=== PATIENT | female | born 1950 | race Caucasian/White ===

== ENCOUNTER 2018-11-04 07:14 | Inpatient (IN) ==
--- NOTE | 2018-10-10 12:22 | PAT Medication Instructions ---
Medication Instructions Date of Service October 10, 2018 Home Medications calcium carbonate [Calcium 500] 500 mg PO QAM cholecalciferol (vitamin D3) 1,000 unit PO QAM lorazepam 0.5 mg PO BID NEEDED DO NOT take the morning of surgery calcium carbonate [Calcium 500] 500 mg PO QAM cholecalciferol (vitamin D3) 1,000 unit PO QAM Take morning of surgery With a small sip of water, OTHERWISE NOTHING TO EAT OR DRINK AFTER MIDNIGHT: lorazepam 0.5 mg PO BID NEEDED Take evening before surgery lorazepam 0.5 mg PO BID NEEDED Other Notes If you have any questions please call us at [phone] or [phone] or [phone] or [phone]
--- NOTE | 2018-10-10 12:37 | History & Physical Report ---
Date of Service October 10, 2018 Date of Surgery: 11-04-18 Assessment & Plan (1) Bilateral primary osteoarthritis of knee: Risks and benefits of procedure discussed in detail today, patient would like to proceed with Bilateral TKA @ [facility] as scheduled. will obtain medical clearance prior to surgery as well as obtain PATs at [facility]. Will place on Xarelto x 1 month post op, f/u 2 weeks post op for routine post-operative care and xray, sooner if having any problems. will make arrangements for short rehab stay after her surgery. Patients PCP is Dr Tee Hernandez in [place]. History of Present Illness Chief Complaint: bilateral knee pain Primary Care Provider: Tee Hernandez Ms Kim is a 68 year old female who complains of bilateral knee pain, is here today for pre-op visit for bilateral TKA for 11/04/[address] [facility]. She states that the symptoms have been chronic non-traumatic. The symptoms occur intermittently. The problem is unchanged. Currently the patient states that the symptoms are moderate-severe. The pain is described as aching and occasionally sharp. The symptoms occur intermittently. She rates her current pain as 8/10, least is 4/10. The symptoms are aggravated by ascending stairs, daily activities, descending stairs and walking. Emily states that the symptoms are relieved by no specific activity. In addition to knee pain equally on both sides the patient is also experiencing joint pain. she has had previous cortisone injections as well has home exercise program. she has performed PT x 1 as well as using a brace pre-op. Allergies Allergy/AdvReac Type Severity Reaction Status Date / Time No Known Allergies Allergy Verified 10/07/18 09:45 Home Medications Home Medications Medication Instructions Recorded Confirmed Type calcium carbonate [Calcium 500] 500 mg PO QAM 10/07/18 10/07/18 History cholecalciferol (vitamin D3) 1,000 unit PO QAM 10/07/18 10/07/18 History [Vitamin D3] lorazepam 0.5 mg PO BID PRN 10/07/18 10/07/18 History Past Med/Surg History Medical History Chronic obstructive pulmonary disease MILD. DOES NOT USE ANY INHALERS Degenerative disc disease LUMBAR, PT DENIES ANY CURRENT COMPLICATIONS Hyperlipidemia ELEVATED, CURRENTLY DIET MODIFICATION AND MONITORED Osteoarthritis Surgical History History of hysterectomy History of open reduction and internal fixation (ORIF) procedure B/L WRIST S/T FALL. PT HAS A PLATE IN HER LEFT WRIST. History of surgery EYE SURGERY FOR TRIPOD FX Social History Current Living Situation: Alone Other Information That Helps Us Care for You: No Feels Safe at Home: Yes Safety Concerns: Feels Safe At This Time Smoking Status: Never smoker Do You Dip or Chew Tobacco: No Second Hand Exposure: No Tobacco Cessation Education Requested by Patient: No Hx Alcohol Use: No Hx Substance Use: No Beliefs That Will Affect Care: None Preferred Language: Nepalese Communication Ability: Effective Commercial Collections Driver Required: No Review of Systems All systems reviewed & are unremarkable except as noted in HPI & below Constitutional: no fever, no chills, no sweats and no body aches Respiratory: no cough and no dyspnea Cardiovascular: no chest pain, no dyspnea and no orthopnea Gastrointestinal: no nausea and no vomiting Integumentary: no rash and no lesions Physical Exam Vital Signs (Past 24 Hours): Ht: 5ft 10 inches Wt: 74.8kg BP: 124/78 Pulse: 72 Resp: 16 Constitutional: WD/WN, vitals as above no acute distress Respiratory: normal respiratory effort, lungs clear to auscultation no respiratory distress, no labored breathing and does not use accessory muscles Cardiovascular: RRR, no murmur, no edema Gastrointestinal (Abdomen): normal bowel sounds, soft, nontender, no hepatosplenomegaly Musculoskeletal: Bilateral knee Physical exam Overall patient has varus alignment bilaterally, there is no atrophy or ecchymosis noted, no erythema or warmth. she does have +1 suprapatellar effusion in both of her knees, she has tenderness to both medial and lateral joint lines to her right knee, more medial sided tenderness to the left knee. negative patellar apprehension, she does have crepitation noted to both knees with active ROM. bilateral knees stable to valgus and varus stress, julissa negative, posterior drawer negative. Range of motion right knee 0/3/110, left knee 0/3/115. her lower extremities are neurovascularly intact, calf soft and non tender, DP pulse +2 bilaterally. Results & Data Diagnostic Findings Bilateral Knee X-rays taken 09/17/18: bilateral knee series confirm advanced degenerative changes bilateral knees, greatest medial compartments and patellofemoral joints, showing joint space narrowing, osteophyte formation and subchondral sclerosis. no acute bony pathology noted. no loose bodies.
--- NOTE | 2018-10-10 15:00 | Anesthesiology Consultation ---
Date of Service October 10, 2018 Assessment & Plan (1) Encounter for pre-operative examination: Chart Review Chart Review: Acceptable Risk for Surgery and Patient seen in Pre Admission Testing Consults Requested medical (Dr. Tee Hernandez (10/13)) Patient was seen by PCP on 10/13/18. Note states that "She is cleared for surgery. Her preoperative electrocardiogram and labs are reviewed." Teaching & Discussion Pre-Anesthesia Teaching/Discussion Notes: Instructed NPO after midnight before surgery, except medications with 15 cc of water. Medication instructions provided according to the PAT guidelines. History Surgery Operation Date: 11/04/18 08:35 Proposed Procedures p Bilateral Total Knee Arthroplasty - Scott Singh DO Height/Weight Height: 5 ft 10 in Weight: 78 kg Allergies Allergy/AdvReac Type Severity Reaction Status Date / Time No Known Allergies Allergy Verified 10/07/18 09:45 Medications Home Medications Medication Instructions Recorded Confirmed Last Taken calcium carbonate [Calcium 500] 500 mg PO QAM 10/07/18 10/07/18 Unknown cholecalciferol (vitamin D3) 1,000 unit PO QAM 10/07/18 10/07/18 Unknown [Vitamin D3] lorazepam 0.5 mg PO BID PRN 10/07/18 10/07/18 Unknown Past Medical History Medical History Chronic obstructive pulmonary disease MILD. DOES NOT USE ANY INHALERS Degenerative disc disease LUMBAR, PT DENIES ANY CURRENT COMPLICATIONS Hyperlipidemia ELEVATED, CURRENTLY DIET MODIFICATION AND MONITORED Osteoarthritis Past Surgical History Surgical History H/O varicose vein stripping right History of hysterectomy History of open reduction and internal fixation (ORIF) procedure B/L WRIST S/T FALL. PT HAS A PLATE IN HER LEFT WRIST. History of phacoemulsification of cataract of both eyes with intraocular lens implantation History of surgery EYE SURGERY FOR TRIPOD FX History of tonsillectomy and adenoidectomy Past Anesthesia History No Hx of Anesthesia Complications and No Family Hx of Anesthesia Complications History of PONV No Motion Sickness Screening History of Motion Sickness: No Social History Smoking Status: Never smoker Do You Dip or Chew Tobacco: No Hx Alcohol Use: No Alcohol Intake Frequency Comment: 0 Hx Substance Use: No substance use type: does not use Exercise / Class Metabolic Activity II 4-5 Yardwork/Stairs/Walk up hill Able to climb FOS. Denies CP or SOB. Review of Systems Patient denies chest pain, shortness of breath, dyspnea on exertion, reflux, cough, wheezing, palpitations. +joint pain (knees, shoulders, elbows) +heart palpitations (rare, with anxiety) Physical Exam Vital Signs BP: 108/73 P: 73 R: 16 T: 98.0 SPO2: 96% on RA ENMT Mouth: + dentures (Full upper plate) Thyromental Distance: < 3.5 Finger Breadths (3) Mallampati Class: II Neck normal visual inspection and trachea midline; neck extension not limited Respiratory normal respiratory effort Auscultation: lungs clear to auscultation bilaterally Cardiovascular Rate/Rhythm: regular rate and regular rhythm Heart Sounds: no murmur Vessels: no carotid bruit Neurologic moves all extremities Psychiatric Orientation: alert and oriented x 3 Testing Electrocardiogram Date: 10/10/18 Findings: + NSR @ (70) Chest X-Ray Date: 10/10/18 FINDINGS: Cardiac mediastinal and hilar silhouettes are within normal limits. Mild hyperinflation. No pneumothorax, pleural effusion or overt pulmonary edema. No lobar airspace consolidation to suggest pneumonia. Ill-defined 2.2 cm opacity about the lateral left lung base seen on the frontal view without definite correlate on the lateral projection. Degenerative changes of the shoulders and spine. IMPRESSION: 1. Mild hyperinflation without acute process. 2. Ill-defined 2.2 cm opacity about the lateral left lung base is indeterminate and may reflect summation artifact versus underlying pulmonary lesion. (Results sent to PCP) Laboratory Results 10/10/18 15:15 10/10/18 15:15 Blood Type A Positive 10/10/18 15:15 Antibody Screen NEGATIVE 10/10/18 15:15 PT 10.3 Seconds (9.0-12.0) 10/10/18 15:15 INR 1.0 (0.9-1.1) 10/10/18 15:15 APTT 25.4 Seconds (21.0-31.0) 10/10/18 15:15 Hemoglobin A1c 6.0 % (4.5-5.6) H 10/10/18 15:15 Urine Color Yellow 10/10/18 15:15 Urine Appearance Clear (Clear) 10/10/18 15:15 Urine pH 5.0 (4.5-7.5) 10/10/18 15:15 Ur Specific [place] 1.016 (1.000-1.030) 10/10/18 15:15 Urine Protein Negative (Negative) 10/10/18 15:15 Urine Glucose (UA) Negative (Negative) 10/10/18 15:15 Urine Ketones Negative (Negative) 10/10/18 15:15 Urine Nitrite Negative (Negative) 10/10/18 15:15 Ur Leukocyte Esterase Negative (Negative) 10/10/18 15:15 10/10/18 14:50 Urine Culture - Final Urine,Clean Catch More than three types of organisms present, all moderate counts mixed probable skin brittany. No further identifications or sensitivities to follow.
--- NOTE | 2018-10-10 15:43 | XRay Report ---
XR chest Pre-admission PA/Lat HISTORY: 68 years-old Female PAT preoperative exam. No acute chest complaints reported. COMPARISON: None available TECHNIQUE: PA and lateral views of the chest FINDINGS: Cardiac mediastinal and hilar silhouettes are within normal limits. Mild hyperinflation. No pneumotho rax, pleural effusion or overt pulmonary edema. No lobar airspace consolidation to suggest pneumonia. Ill-defined 2.2 cm opacity about the lateral left lung base seen on the frontal view without definit e correlate on the lateral projection. Degenerative changes of the shoulders and spine. IMPRESSION: 1. Mild hyperinflation without acute process. 2. Ill-defined 2.2 cm opacity about the lateral left lung base is indeterminate and may reflect summa tion artifact versus underlying pulmonary lesion. The above report was generated using voice recognition software. It may contain grammatical, syntax o r spelling errors. Electronically signed by: Dany Mejía M.D. 10/10/2018 3:42 PM
[2018-10-10 16:53] LABS: Basophils # (auto) 0.03 K/uL (0-0.2); Basophils % (auto) 0.5 %; Eosinophils # (auto) 0.12 K/uL (0-0.5); Eosinophils % (auto) 1.9 %; Hematocrit (blood only) 40.4 % (37-47); Hemoglobin 13.4 g/dL (12.0-16.0); Immature Granulocytes # (auto) 0.02 K/uL (0.00-0.02); Immature Granulocytes % (auto) 0.3 %; Lymphocytes # (auto) 2.52 K/uL (1.2-3.4); Lymphocytes % (auto) 39.6 %; Mean Corpuscular Hgb Conc 33.2 g/dL (32-36); Mean Platelet Volume 10.6 fL (7.4-10.4); Monocytes % (auto) 7.8 %; Neutrophils # (auto) 3.18 K/uL (1.4-6.5); Neutrophils % (auto) 49.9 %; Platelet Count 305 K/uL (130-400); RDW Coefficient of Variation 12.7 % (11.5-14.5); RDW Standard Deviation 41.4 fL (36.4-46.3); Red Blood Count 4.54 M/uL (4.2-5.4); White Blood Count 6.37 K/uL (4.8-10.8)
[2018-10-10 16:55] LABS: Appearance Urine Clear (Clear); Bilirubin Urine Negative (Negative); Blood Urine Negative (Negative); Color Urine Yellow; Glucose Urine UA Negative (Negative); Ketones Urine Negative (Negative); Leukocyte Esterase Urine Negative (Negative); Nitrite Urine Negative (Negative); Protein Urine Negative (Negative); Specific Gravity Urine 1.016 (1.000-1.030); Urobilinogen Urine Negative (Negative)
[2018-10-10 17:02] LABS: BUN Creatinine Ratio 19.3 (10-20); Calcium 9.4 mg/dl (8.5-10.1); Creatinine Clr Calc Pharmacy 94.1 ml/min; Est GFR (African American) 107.2; Est GFR (Non-African American) 92.5; Potassium 3.8 mmol/L (3.5-5.1)
[2018-10-10 17:05] LABS: Partial Thromboplastin Ratio 0.9; Partial Thromboplastin Time 25.4 Seconds (21.0-31.0); Prothrombin Time 10.3 Seconds (9.0-12.0)
[2018-10-11 07:06] LABS: Estimated Average Glucose 126 mg/dl
[~2018-11-04 07:14] MED LIST: ACETAMINOPHEN 500 MG TAB PO SCH; BUPIVACAINE 0.5 % 5 MG/1 ML PF 10ML VIAL ONE; CEFAZOLIN 1000MG 1,000 MG/7.5 ML SYR IV SCH; CeleBREX 200 MG CAP PO SCH; EPINEPHrine INJ 1 MG/ML AMP ONE; FAMOTIDINE 20 MG TAB PO SCH; GABAPENTIN 300 MG PO SCH; LR 500ML BOLUS, THEN 15ML/HR IV SCH; METOCLOPRAMIDE HCL 10 MG TABLET PO SCH; ROPIVACAINE 0.5% 5 MG/ML 30 ML VIAL ONE; ROPIVACAINE 0.5% HCL/PF 150 MG, BUPIVACAINE 0.5% MPF 30 ML, EPINEPHrine 30MG/30ML (OR U... INFIL SCH; TRANEXAMIC ACID 1,000 MG **IV Intra-op IV SCH; TRANEXAMIC ACID 1,000 MG **IV Pre-op IV SCH; dexAMETHasone 4 MG TAB PO SCH
[2018-11-04] MEDS ORDERED: PROPOFOL IV EMULSION 10 MG/ML 20 ML VIAL IV ONE ×3 (08:19→11:44)
[2018-11-04] MEDS ORDERED: fentaNYL citrate 100 MCG/2 ML VIAL ONE (08:19)
[2018-11-04] MEDS ORDERED: MIDAZOLAM HCL 1 MG/ML 2ML VIAL ONE ×2 (08:19→10:31)
--- NOTE | 2018-11-04 08:25 | History & Physical Bridge Note ---
Date of Service November 04, 2018 History & Physical Bridge Note I have examined the patient, reviewed the History & Physical and in the interval since the performance of the History & Physical I have noted the following changes of clinical significance: no changes noted
[2018-11-04] MEDS ORDERED: ORTHO JOINT ANESTHETIC ONE (09:12)
[2018-11-04] MEDS ORDERED: BACITRACIN INJ 50,000 UNIT VIAL ONE ×2 (09:12→11:46)
[2018-11-04] MEDS ORDERED: POVIDONE-IODINE OP SOLN 30 ML BTL ONE (09:12)
[2018-11-04] MEDS ORDERED: HYDROmorphone INJ 1 MG/ML SYRINGE IV PRN ×2 (10:13→14:18)
[2018-11-04] MEDS ORDERED: fentaNYL citrate 100 MCG/2 ML VIAL IV PRN (10:13)
[2018-11-04] MEDS ORDERED: ePHEDrine sulfate 50 MG/ML AMP IV PRN (10:13)
[2018-11-04] MEDS ORDERED: ONDANSETRON INJ 2 MG/ML 2 ML VIAL IV PRN ×2 (10:13→14:18)
[2018-11-04] MEDS ORDERED: ATROPINE SULFATE 0.1 MG/ML 10ML SYR IV PRN (10:13)
--- NOTE | 2018-11-04 12:03 | Operative Report ---
Post Operative Report Pre & Post Diagnosis Operation Date: 11/04/18 10:35 Pre-Op Diagnosis: Bilateral Knee Osteoarthritis Post-Op Diagnosis: Bilateral Knee Osteoarthritis Procedure Operation Date: 11/04/18 10:35 Actual Procedures p Bilateral Total Knee Arthroplasty(Bilateral) utilizing journey to non-bloc total knee arthroplasty left size 5 femur 5 tibia 9 polyethylene 35 oval patella right 5 femur 5 tibia 9 polyethylene 35 oval patella- Scott Singh DO Surgeon Scott Singh DO Rating Examiner Clark LOPEZ Estimated Blood Loss 5 Findings Consistent with Post-Op Diagnosis Patient presents with bilateral end-stage DJD with subchondral sclerosis marginal osteophytes moderate to large effusion eburnated rivx-so-ynyd changes in bilateral knees no response to conservative measures including physical therapy anti-inflammatories relative rest the above intra-operative findings were noted as well as a preoperative workup with x-rays revealed the above findings Specimens Bone and cartilage Drains Medium bore Hemovac Complications none Disposition Accompanied Patient To Recovery: No Disposition: Recovery Room Indications Patient presents as a very pleasant 68-year-old female with severe end-stage tricompartmental degenerative joint disease of bilateral knees no response to conservative management is failed attempts of physical therapy anti- inflammatories relative rest activity modification corticosteroid injections Visco supplementation she presents for total knee arthroplasty bilaterally. Description of Procedure After proper prepping and draping of the bilateral lower extremities, an anterior midline incision was made over the region of the extensor extensor mechanism of the left knee. After meticulous hemostasis was obtained and maintained in subcutaneous tissues a medial parapatellar incision was made The patella was subluxed lateralward the medial lateral gutter were cleaned from any hypertrophic synovitis and scar tissue of the distal femoral block was placed and the distal femoral osteotomy cut was made subsequently the chamfers anterior and posterior osteotomy cuts were made utilizing the 4-in-1 block the tibia was subsequently subluxed anteriorward medial and ateral meniscal remnants were excised in their entirety remnants of the anterior and posterior cruciate ligaments were excised in their entirety excellent exposure of the proximal tibia was obtained the tibial osteotomy guide was placed on the proximal tibial osteotomy cut was made once again the knee was irrigated with copious amounts of sterile saline solution the patella was subsequently everted lateralward thickened scar tissue around the patella was removed the patella was subsequently cut utilizing a freehand technique and was drilled prepared for final preparation and placement of patella socially flexion-extension gaps were checked and the equal and symmetric trials were placed to the appropriate femoral and tibial trials with poly-spacer being placed for equal flexion and extension gaps and full range of motion including extension to 0 and flexion to 140 the trial components after having been taken to recovery range of motion was subsequently removed meticulous hemostasis was obtained and maintained subsequently a knee block injection of joint cocktail including ropivacaine 0.5% 150 mg. Bupivacaine 0.5% epinephrine 1-200,030 mL's toradol 30 mg dexamethasone 4 mg ketamine 10 mg clonidine 100 micrograms normal saline solution 30 mg was infiltrated into the soft tissues of the posterior knee medial lateral gutters and periosteal synovium special attention was paid to protect neurovascular structures at all times subsequently trial components having been removed the knee was irrigated with sterile saline solution. debris was removed the proximal tibia was subsequently prepared and was made ready for the placement of the tibial component tibial component was also cemented and tamped into position the femoral component was subsequently placed and cemented in the position the patellar component was subsequently cemented in position because hemostasis once again obtained and maintained wound having been thoroughly irrigated with debridement and debridement lavage was performed as well as a medial parapatellar incision closed with #1 Vicryl in interrupted fashion subcutaneous was closed with #2 Vicryl skin was closed with skin clips Next, an anterior midline incision was made over the region of the extensor extensor mechanism of the right knee. After meticulous hemostasis was obtained and maintained in subcutaneous tissues a medial parapatellar incision was made The patella was subluxed lateralward the medial lateral gutter were cleaned from any hypertrophic synovitis and scar tissue of the distal femoral block was placed and the distal femoral osteotomy cut was made subsequently the chamfers anterior and posterior osteotomy cuts were made utilizing the 4-in-1 block the tibia was subsequently subluxed anteriorward medial and ateral meniscal remnants were excised in their entirety remnants of the anterior and posterior cruciate ligaments were excised in their entirety excellent exposure of the proximal tibia was obtained the tibial osteotomy guide was placed on the proximal tibial osteotomy cut was made once again the knee was irrigated with copious amounts of sterile saline solution the patella was subsequently everted lateralward thickened scar tissue around the patella was removed the patella was subsequently cut utilizing a freehand technique and was drilled prepared for final preparation and placement of patella socially flexion-extension gaps were checked and the equal and symmetric trials were placed to the appropriate femoral and tibial trials with poly-spacer being placed for equal flexion and extension gaps and full range of motion including extension to 0 and flexion to 140 the trial components after having been taken to recovery range of motion w as subsequently removed meticulous hemostasis was obtained and maintained subsequently a knee block injection of joint cocktail including ropivacaine 0.5% 150 mg. Bupivacaine 0.5% epinephrine 1-200,030 mL's toradol 30 mg dexamethasone 4 mg ketamine 10 mg clonidine 100 micrograms normal saline solution 30 mg was infiltrated into the soft tissues of the posterior knee medial lateral gutters and periosteal synovium special attention was paid to protect neurovascular structures at all times subsequently trial components having been removed the knee was irrigated with sterile saline solution. debris was removed the proximal tibia was subsequently prepared and was made ready for the placement of the tibial component tibial component was also cemented and tamped into position the femoral component was subsequently placed and cemented in the position the patellar component was subsequently cemented in position because hemostasis once again obtained and maintained wound having been thoroughly irrigated with debridement and debridement lavage was performed as well as a medial parapatellar incision closed with #1 Vicryl in interrupted fashion subcutaneous was closed with #2 Vicryl skin was closed with skin clips.. PA-C was necessary for prepping and drapping as well as wound closure of deep fascia Sub cutaneous tissue and skin and was necessary for the case. A sterile compressive dressings were placed, patient was taken to recovery in stable condition of report dictated by Francisco I attest to the content of the Intraoperative Record and any orders documented therein. Any exceptions are noted below. I attest to the content of the Intraoperative Record and any orders documented therein. Any exceptions are noted below.
--- NOTE | 2018-11-04 13:37 | Anesthesiology Progress Note ---
Date of Service November 04, 2018 Anesthesia Post Procedure Vital Signs Vital Signs: Temp Pulse Pulse Resp BP Pulse Ox 11/04/18 13:25 64 15 114/66 100 11/04/18 13:15 69 13 109/71 100 11/04/18 13:05 76 20 127/70 100 11/04/18 12:55 69 12 116/65 100 11/04/18 12:48 36.0 C L 83 14 120/70 100 11/04/18 08:05 36.7 C 78 20 132/72 97 Pain Intensity Bilateral Knee: Pain Intensity: 0 Notes Mental Status: alert / awake / arousable and participated in evaluation Nausea / Vomiting: adequately controlled Pain: adequately controlled Airway Patency, RR, SpO2: stable & adequate BP & HR: stable & adequate Hydration State: stable & adequate Neuraxial Anesthesia: was administered and sensory block is resolving Anesthetic Complications: no major complications apparent and Pt Satisfied with anesthetic care
--- NOTE | 2018-11-04 14:11 | XRay Report ---
XR knee RT 2V routine HISTORY: 68 years-old Female Surgical Post Op postoperative exam. Right knee total joint arthroplast y COMPARISON: None available TECHNIQUE: 2 views of the right knee FINDINGS: Right knee total joint arthroplasty demonstrates satisfactory alignment. Expected postoperative swell ing with deep tissue air. Surgical drainage catheter is in place. No retained foreign body or acute f racture. IMPRESSION: Satisfactory alignment of right knee total joint arthroplasty. The above report was generated using voice recognition software. It may contain grammatical, syntax o r spelling errors. Electronically signed by: Dany Mejía M.D. 11/04/2018 2:10 PM
[2018-11-04] MEDS ORDERED: BISACODYL 10 MG SUPP PR PRN (14:18)
[2018-11-04] MEDS ORDERED: LORazepam 0.5 MG TAB PO PRN (14:18)
[2018-11-04] MEDS ORDERED: METOCLOPRAMIDE HCL INJ 5 MG/ML 2 ML VIAL IV PRN (14:18)
[2018-11-04] MEDS ORDERED: MAGNESIUM HYDROXIDE SUSP 30 ML UDC PO PRN (14:18)
[2018-11-04] MEDS ORDERED: NALOXONE HCL 0.4 MG/1 ML VIAL/CARP IV PRN (14:18)
--- NOTE | 2018-11-04 14:18 | XRay Report ---
XR knee LT 2V routine CLINICAL HISTORY: Surgical Post Op COMPARISON: None. DISCUSSION: Anatomic alignment post total left knee arthroplasty. Good contact between prosthetic and underlying bone. Expected soft tissue postoperative change. IMPRESSION: Anatomic alignment post total left knee arthroplasty. The above report was generated using voice recognition software. It may contain grammatical, syntax or spelling errors. Electronically signed by: Clark Carter M.D. 11/04/2018 2:17 PM
[2018-11-04] MEDS: ACETAMINOPHEN 500 MG TAB PO SCH ×2 (14:58→21:21)
[2018-11-04] MEDS: KETOROLAC TROMETHAMINE 15 MG/ML VIAL IV SCH ×2 (14:58→21:20)
[2018-11-04] MEDS: SODIUM CHLORIDE 0.9% 1000ML 1,000 ML IV SCH ×2 (14:58→23:16)
[2018-11-04] MEDS: CEFAZOLIN 2000MG 2,000 MG/15 ML SYR IV SCH ×2 (15:55→23:13)
[2018-11-04] MEDS: OXYCODONE HCL IR 5 MG TAB (IMMEDIATE RELEASE) PO PRN (16:22)
[2018-11-04] MEDS: DOCUSATE SODIUM 100 MG CAP PO SCH (21:19)
[2018-11-04] MEDS: SENNA 8.6 MG TAB PO SCH (21:19)
[2018-11-05] MEDS: KETOROLAC TROMETHAMINE 15 MG/ML VIAL IV SCH ×2 (02:57→09:01)
[2018-11-05] MEDS: OXYCODONE HCL IR 5 MG TAB (IMMEDIATE RELEASE) PO PRN (05:46)
[2018-11-05 05:56] LABS: Hematocrit (blood only) 30.8 % (37-47); Hemoglobin 10.2 g/dL (12.0-16.0); Mean Corpuscular Hgb Conc 33.1 g/dL (32-36); Mean Corpuscular Volume 88.3 fL (80-100); Platelet Count 256 K/uL (130-400); RDW Coefficient of Variation 12.8 % (11.5-14.5); RDW Standard Deviation 41.3 fL (36.4-46.3); Red Blood Count 3.49 M/uL (4.2-5.4); White Blood Count 16.96 K/uL (4.8-10.8)
[2018-11-05] MEDS: ACETAMINOPHEN 500 MG TAB PO SCH ×3 (06:28→22:03)
[2018-11-05 06:35] LABS: Alanine Aminotransferase 20 U/L (12-78); Albumin Level 2.9 gm/dl (3.4-5.0); Aspartate Aminotransferase 16 U/L (15-37); BUN Creatinine Ratio 23.8 (10-20); Bilirubin Direct < 0.1 mg/dl (0-0.2); Blood Urea Nitrogen 15 mg/dl (7-18); Calcium 8.2 mg/dl (8.5-10.1); Carbon Dioxide 25 mmol/L (21-32); Chloride 110 mmol/L (98-107); Creatinine Clr Calc Pharmacy 91.1 ml/min; Est GFR (African American) 106.1; Est GFR (Non-African American) 91.5; Glucose 111 mg/dl (70-99); Potassium 4.4 mmol/L (3.5-5.1); Sodium 140 mmol/L (136-145)
[2018-11-05 06:38] LABS: Alkaline Phosphatase 57 U/L (45-117); Bilirubin,Total 0.5 mg/dl (0.2-1); Total Protein 5.7 gm/dl (6.4-8.2)
--- NOTE | 2018-11-05 08:20 | Anesthesiology Progress Note ---
Date of Service November 05, 2018 Anesthesia Post Procedure Vital Signs Vital Signs: Temp Pulse Pulse Pulse Resp BP Pulse Ox 11/05/18 07:00 36.5 C 71 16 109/69 96 11/05/18 03:13 36.7 C 70 16 109/62 96 11/04/18 23:31 36.3 C L 72 14 107/64 96 11/04/18 19:04 36.4 C L 82 18 114/67 96 11/04/18 17:39 36.3 C L 76 18 132/74 94 11/04/18 16:02 36.5 C 90 18 112/65 11/04/18 15:06 36.3 C L 93 H 18 119/74 94 11/04/18 14:49 78 16 119/74 96 11/04/18 14:00 36.4 C L 81 16 115/71 96 11/04/18 13:45 60 15 106/66 100 11/04/18 13:35 36.3 C L 74 16 122/69 100 11/04/18 13:25 64 15 114/66 100 11/04/18 13:15 69 13 109/71 100 11/04/18 13:05 76 20 127/70 100 11/04/18 12:55 69 12 116/65 100 11/04/18 12:48 36.0 C L 83 14 120/70 100 Pain Intensity Bilateral Knee: Pain Intensity: 2 Notes Mental Status: alert / awake / arousable Patient Amnestic to Procedure: Yes Nausea / Vomiting: adequately controlled Pain: adequately controlled Airway Patency, RR, SpO2: stable & adequate BP & HR: stable & adequate Hydration State: stable & adequate Neuraxial Anesthesia: was administered and sensory block resolved Anesthetic Complications: no major complications apparent
[2018-11-05] MEDS: MULTIVITAMIN TAB PO SCH (09:00)
[2018-11-05] MEDS: CHOLECALCIFEROL 1,000 UNITS TAB PO SCH (09:01)
[2018-11-05] MEDS: RIVAROXABAN 10 MG TABLET PO SCH (09:01)
[2018-11-05] MEDS: CALCIUM CARBONATE 500 MG CHEWABLE TAB PO SCH (09:01)
[2018-11-05] MEDS: DOCUSATE SODIUM 100 MG CAP PO SCH ×2 (09:01→20:09)
--- NOTE | 2018-11-05 09:20 | Orthopedic Progress Note ---
Date of Service November 05, 2018 Assessment & Plan (1) Status post total bilateral knee replacement: POD #1 s/p Bilateral Total Knee Arthroplasty utilizing journey to non- block total knee arthroplasty left size 5 femur 5 tibia 9 polyethylene 35 oval patella right 5 femur 5 tibia 9 polyethylene 35 oval patella PT/OT dvt proph with AGUILAR/SCS/Xarelto x 1 month will discuss with MANA yoo referral to inpatient rehab xrays show anatomical alignment s/p bilateral TKA pull drains later this evening per protocol. Subjective POD #1 s/p bilateral TKA denies CP/SOB denies Fever/Chills pain currently manageable. most of her pain is tourniquet site pain Physical Exam Vital Signs (Past 24 Hours): Last Vital Signs Temp 36.5 C 11/05/18 07:00 Pulse 71 11/05/18 07:00 Resp 16 11/05/18 07:00 BP 109/69 11/05/18 07:00 Pulse Ox 96 11/05/18 07:00 Constitutional: WD/WN, vitals as above no acute distress Musculoskeletal: Bilateral lower extremities are NVDI, calfs are SNT, negative amy signs bilaterally. DP palpable, able to wiggle toes/ankle movement without difficulty. dressings clean dry and intact. Vital Signs Temp 36.5 C 11/05/18 07:00 Pulse 71 11/05/18 07:00 Resp 16 11/05/18 07:00 BP 109/69 11/05/18 07:00 Pulse Ox 96 11/05/18 07:00 Intake & Output 11/04/18 11/05/18 11/05/18 18:59 06:59 18:59 Intake Total 1710 / 4141.667 2431.667 / 4141.66 7 Output Total 405 / 2805 2400 / 2805 Balance 1305 / 1336.667 31.667 / 1336.667 Weight 76.912 kg Intake: IV 1110 / 2676.667 1566.667 / 2676.66 7 Lr 1,000 ml @ 15 mls/hr IV . 1000 / 1000 Q24H MARIO Rx#:0 [id number] Nss 1000ML 1,0 00 ml @ 100 mls/ 1456.667 / 1456.66 7 hr IV .Q10H SC H Rx#:[id number] Cyklokapron 1, 000 mg In Sodium 110 / 110 Chloride 100 m l @ 660 mls/hr IV 0630 MARIO Rx#:0 [id number] IV Perioperative 600 / 600 Oral 865 / 865 Output: Urine 300 / 1575 1275 / 1575 Estimated Blood Loss 5 / 5 Drain Output 100 / 1225 1125 / 1225 Left Knee Hemo vac 40 / 590 550 / 590 Right Knee Hem ovac 60 / 635 575 / 635 Other: # Unmeasured Voi ds 1 Results & Data Laboratory Results Laboratory Results WBC 16.96 K/uL (4.8-10.8) H 11/05/18 05:24 RBC 3.49 M/uL (4.2-5.4) L 11/05/18 05:24 Hgb 10.2 g/dL (12.0-16.0) L 11/05/18 05:24 Hct 30.8 % (37-47) L 11/05/18 05:24 MCV 88.3 fL (80-100) 11/05/18 05:24 MCH 29.2 pg (25-34) 11/05/18 05:24 MCHC 33.1 g/dL (32-36) 11/05/18 05:24 RDW Std Deviation 41.3 fL (36.4-46.3) 11/05/18 05:24 RDW Coeff of Александр 12.8 % (11.5-14.5) 11/05/18 05:24 Plt Count 256 K/uL (130-400) 11/05/18 05:24 MPV 10.0 fL (7.4-10.4) 11/05/18 05:24 Immature Gran % (Auto) 0.3 % 10/10/18 15:15 Neut % (Auto) 49.9 % 10/10/18 15:15 Lymph % (Auto) 39.6 % 10/10/18 15:15 [place] % (Auto) 7.8 % 10/10/18 15:15 Eos % (Auto) 1.9 % 10/10/18 15:15 Baso % (Auto) 0.5 % 10/10/18 15:15 Immature Gran # (Auto) 0.02 K/uL (0.00-0.02) 10/10/18 15:15 Neut # (Auto) 3.18 K/uL (1.4-6.5) 10/10/18 15:15 Lymph # (Auto) 2.52 K/uL (1.2-3.4) 10/10/18 15:15 [place] # (Auto) 0.50 K/uL (0.11-0.59) 10/10/18 15:15 Eos # (Auto) 0.12 K/uL (0-0.5) 10/10/18 15:15 Baso # (Auto) 0.03 K/uL (0-0.2) 10/10/18 15:15 PT 10.3 Seconds (9.0-12.0) 10/10/18 15:15 INR 1.0 (0.9-1.1) 10/10/18 15:15 APTT 25.4 Seconds (21.0-31.0) 10/10/18 15:15 PTT Ratio 0.9 10/10/18 15:15 Sodium 140 mmol/L (136-145) 11/05/18 05:24 Potassium 4.4 mmol/L (3.5-5.1) 11/05/18 05:24 Chloride 110 mmol/L (98-107) H 11/05/18 05:24 Carbon Dioxide 25 mmol/L (21-32) 11/05/18 05:24 Anion Gap 5.0 (3-11) 11/05/18 05:24 BUN 15 mg/dl (7-18) 11/05/18 05:24 Creatinine 0.63 mg/dl (0.6-1.2) 11/05/18 05:24 Est Cr Clr Drug Dosing 91.1 ml/min 11/05/18 05:24 Est GFR ( Amer) 106.1 11/05/18 05:24 Est GFR (Non-Af Amer) 91.5 11/05/18 05:24 BUN/Creatinine Ratio 23.8 (10-20) H 11/05/18 05:24 Glucose 111 mg/dl (70-99) H 11/05/18 05:24 Estimat Average Glucose 126 mg/dl 10/10/18 15:15 Hemoglobin A1c 6.0 % (4.5-5.6) H 10/10/18 15:15 Calcium 8.2 mg/dl (8.5-10.1) L 11/05/18 05:24 Total Bilirubin 0.5 mg/dl (0.2-1) 11/05/18 05:24 Direct Bilirubin < 0.1 mg/dl (0-0.2) 11/05/18 05:24 AST 16 U/L (15-37) 11/05/18 05:24 ALT 20 U/L (12-78) 11/05/18 05:24 Alkaline Phosphatase 57 U/L (45-117) 11/05/18 05:24 Total Protein 5.7 gm/dl (6.4-8.2) L 11/05/18 05:24 Albumin 2.9 gm/dl (3.4-5.0) L 11/05/18 05:24 Urine Color Yellow 10/10/18 15:15 Urine Appearance Clear (Clear) 10/10/18 15:15 Urine pH 5.0 (4.5-7.5) 10/10/18 15:15 Ur Specific [place] 1.016 (1.000-1.030) 10/10/18 15:15 Urine Protein Negative (Negative) 10/10/18 15:15 Urine Glucose (UA) Negative (Negative) 10/10/18 15:15 Urine Ketones Negative (Negative) 10/10/18 15:15 Urine Blood Negative (Negative) 10/10/18 15:15 Urine Nitrite Negative (Negative) 10/10/18 15:15 Urine Bilirubin Negative (Negative) 10/10/18 15:15 Urine Urobilinogen Negative (Negative) 10/10/18 15:15 Ur Leukocyte Esterase Negative (Negative) 10/10/18 15:15 Hepatitis C Ab Screen Neg (Neg) 11/05/18 05:24 Blood Type A Positive 10/10/18 15:15 Antibody Screen NEGATIVE 10/10/18 15:15 Diagnostic Findings XR knee RT 2V routine HISTORY: 68 years-old Female Surgical Post Op postoperative exam. Right knee total joint arthroplasty COMPARISON: None available TECHNIQUE: 2 views of the right knee FINDINGS: Right knee total joint arthroplasty demonstrates satisfactory alignment. Exp ected postoperative swelling with deep tissue air. Surgical drainage catheter is in place. No retained foreign body or acute fracture. IMPRESSION: Satisfactory alignment of right knee total joint arthroplasty. XR knee LT 2V routine CLINICAL HISTORY: Surgical Post Op COMPARISON: None. DISCUSSION: Anatomic alignment post total left knee arthroplasty. Good contact between prosthetic and underlying bone. Expected soft tissue postoperative change. IMPRESSION: Anatomic alignment post total left knee arthroplasty.
[2018-11-05] MEDS: SENNA 8.6 MG TAB PO SCH (20:09)
[2018-11-06] MEDS: OXYCODONE HCL IR 5 MG TAB (IMMEDIATE RELEASE) PO PRN ×4 (01:13→17:35)
[2018-11-06] MEDS: ACETAMINOPHEN 500 MG TAB PO SCH ×2 (06:15→13:33)
--- NOTE | 2018-11-06 07:07 | Orthopedic Progress Note ---
Date of Service November 06, 2018 Assessment & Plan (1) Status post total bilateral knee replacement: POD #2 s/p Bilateral Total Knee Arthroplasty utilizing journey to non- block total knee arthroplasty left size 5 femur 5 tibia 9 polyethylene 35 oval patella right 5 femur 5 tibia 9 polyethylene 35 oval patella PT/OT dvt proph with AGUILAR/SCS/Xarelto x 1 month will discuss with MAAN yoo referral to inpatient rehab, awaiting authorization xrays show anatomical alignment s/p bilateral TKA Subjective POD #2 s/p bilateral TKA denies CP/SOB denies Fever/Chills pain currently manageable. most of her pain is tourniquet site pain, but improved since yesterday Physical Exam Vital Signs (Past 24 Hours): Last Vital Signs Temp 36.8 C 11/05/18 22:59 Pulse 93 H 11/05/18 22:59 Resp 18 11/05/18 22:59 BP 122/68 11/05/18 22:59 Pulse Ox 96 11/05/18 22:59 Constitutional: WD/WN, vitals as above no acute distress bilateral legs: NVDI, calf SNT, negative amy sign. DP palpable, able to wiggle toes/ankle movement without difficulty. WESTON dressing clean dry and intact. expected post- operative bruising noted.
[2018-11-06] MEDS: DOCUSATE SODIUM 100 MG CAP PO SCH (09:00)
[2018-11-06] MEDS: CHOLECALCIFEROL 1,000 UNITS TAB PO SCH (09:00)
[2018-11-06] MEDS: MULTIVITAMIN TAB PO SCH (09:00)
[2018-11-06] MEDS: CALCIUM CARBONATE 500 MG CHEWABLE TAB PO SCH (09:00)
[2018-11-06] MEDS: RIVAROXABAN 10 MG TABLET PO SCH (09:00)
[2018-11-06 16:03] VITALS: BP 136/67; PULSE 109; TEMP 97.9; O2SAT 96
--- NOTE | 2018-11-06 18:47 | Discharge Summary ---
Date of Service Date of Discharge: November 06, 2018 Date of Admission: 11/04/18 Admission HPI Per Admitting Provider Ms Kim is a 68 year old female who complains of bilateral knee pain, is here today for pre-op visit for bilateral TKA for 11/04/18 at [facility]. She states that the symptoms have been chronic non-traumatic. The symptoms occur intermittently. The problem is unchanged. Currently the patient states that the symptoms are moderate-severe. The pain is described as aching and occasionally sharp. The symptoms occur intermittently. She rates her current pain as 8/10, least is 4/10. The symptoms are aggravated by ascending stairs, daily activities, descending stairs and walking. Emily states that the symptoms are relieved by no specific activity. In addition to knee pain equally on both sides the patient is also experiencing joint pain. she has had previous cortisone injections as well has home exercise program. she has performed PT x 1 as well as using a brace pre-op. Principal Diagnosis bilateral knee osteoarthritis Discharge Exam Constitutional WD/WN, vitals as above no acute distress Musculoskeletal bilateral legs: NVDI, calf SNT, negative amy sign. DP palpable, able to wiggle toes/ankle movement without difficulty. WESTON dressing clean dry and intact. expected post-operative bruising noted. Discharge Data Allergies Allergy/AdvReac Type Severity Reaction Status Date / Time No Known Allergies Allergy Verified 11/04/18 08:02 Consultations 11/04/18 14:18 Consult Case Management - Discharge Planning Routine Procedures Performed Operation Date: 11/04/18 10:35 Actual Procedures p Bilateral Total Knee Arthroplasty(Bilateral) - Scott Singh DO Ordered Studies 11/04/18 05:00 US - OR guided needle placemen Routine 11/04/18 09:41 US - OR guided needle placemen Routine Hospital Course (1) Status post total bilateral knee replacement: POD #2 s/p Bilateral Total Knee Arthroplasty utilizing journey to non- block total knee arthroplasty left size 5 femur 5 tibia 9 polyethylene 35 oval patella right 5 femur 5 tibia 9 polyethylene 35 oval patella PT/OT dvt proph with AGUILAR/SCS/Xarelto x 1 month stable for transfer to [facility] today. xrays show anatomical alignment s/p bilateral TKA Total Time Total Time Spent Total Time Spent (In Minutes): 20 Total Time Includes: Examination of the Patient, Discharge Planning and Medication Reconciliation Discharge Plan Discharge Items Patient Disposition: Transfer Inpatient Rehab Fac Reason For Visit: BILATERAL KNEE OSTEOARTHRITIS Discharge Diagnosis: bilateral total knee replacements Condition: Good Discharge Goals: Decrease discomfort, Improve function and Increase independence Activity: Per 'Additional Instructions' section Lifting: Wait until after follow-up appointment Driving/Machine Use Comment: no driving until cleared by your physician Weightbearing: Left weightbearing and Right weightbearing Weightbearing Comment: WBAT bilateral knees with walker Non-emergency contact: Primary Care Provider and Surgeon Call non-emergency contact if: you have any medication questions, your temperature is above 100.5, your wound has increased redness, your wound has increased drainage and your wound pain has increased Follow-up/Referrals: Tee Hernandez DO [Primary Care Provider] - Diet: Regular Addtl Provider Instructions: ACTIVITY RECOMMENDATIONS: SELF CARE INSTRUCTIONS AFTER TOTAL KNEE REPLACEMENT A. You may need to continue a physical therapy program after discharge from the hospital. There are several options available to you. Your doctor will assist you in selecting the best one for you. 1. An out-patient facility 2 to 3 times a week for therapy or home therapy. 2. Continue working on all exercises taught to you in the hospital. Your goals should be to increase bending of your knee to 90 degrees and beyond and to fully straighten your knee. B. You may progress at your own pace from walking with a walker or crutches to a cane; then to no assistive devices. C. Make walking a part of your daily routine. Be up as much as comfortable with rest periods throughout the day. Rest with leg elevation is very important. Use the ice wrap frequently for the first 3-4 weeks. D. There are no restrictions on activities. You may ride in a car, shop, participate in batch unloader and all social activities. E. Wear the long elastic stockings (AGUILAR hose) 20 hours a day for 2 weeks after surgery. They can be removed several times a day for laundering and for a bath. F. You may shower, no tub baths until cleared by your doctor. SPECIAL CARE INSTRUCTIONS: VERY IMPORTANT TO READ AND REVIEW A. There are a few signs you need to watch for after you are home. Call [facility] if you notice any of the followin. Increased severe knee pain. Some pain is expected especially when you exercise. 2. Increased swelling in your leg or knee; pain or swelling of the calf muscle in either lower leg. 3. Any fluid drainage from the incision. 4. Shortness of breath or chest pain. B. Please call [facility] at if you have any concerns or questions about your operation or recovery. The doctor or his nurse will return your call promptly. C. You must take antibiotics before dental work, bladder, bowel or other surgery. Your doctor will provide you with a permanent care to carry describing this precaution. IMPORTANT: * REMEMBER TO TAKE Xarelto twice a day x 1 month. * CALL IF INCREASED PAIN, REDNESS, DRAINAGE OR FEVER GREATER THAT 101. * WEAR GAUILAR HOSE 20 HOURS PER DAY FOR 2 WEEKS. * WESTON Dressing- This is a large suction dressing covering your incision. This will help pull any excess drainage from the wound and allow your incision to heal properly. You may shower with this if you can keep the unit outside of the shower. If any bleeding or leakage is noted please call your doctor's office. This will remain on your incision for 7 days and then should be removed. This can be done yourself or by the home nursing staff if applicable. The entire unit is disposable once removed. Once removed, keep incision clean and dry. If redness or drainage is noted, please call your surgeon. DERMABOND Prineo- This is a mesh tape dressing that is covered with glue. It should remain in place until the incision is properly healed, usually 10-14 days. This dressing is designed to naturally slough off. You may trim the excess mesh tape as it peels off. Incision may be briefly wet in a shower. Dry immediately by blotting with a clean, dry towel. Do not bath or swim until instructed by your doctor. Do not scratch, rub, or pick at the dressing. Do not apply any topical ointments or lotions until dressing is completely removed and/or instructed by your doctor. There may be a small piece of suture material at one end of your incision. Do not pull or trim this. If it is bothersome or catching on clothing, you may cover it with a band-aid. FOLLOW UP VISIT: If appointment is not already scheduled: Please call [facility] to make a follow-up appointment for 2 weeks after your surgery at . Prescriptions: New acetaminophen [Pain Reliever] 500 mg Tablet 1,000 mg PO Q8 14 Days Qty: 84 RF: 0 oxycodone 5 mg Tablet 5 - 10 mg PO Q6H PRN (Reason: pain) Qty: 30 RF: 0 Xarelto 10 mg Tablet 10 mg PO DAILY 26 Days Qty: 26 RF: 0 docusate sodium 100 mg Capsule 100 mg PO BID 10 Days Qty: 20 RF: 0 cefadroxil 500 mg capsule 500 mg PO BID 10 Days Qty: 20 RF: 0 Continued lorazepam 0.5 mg Tablet 0.5 mg PO BID PRN (Reason: Anxiety) RF: 0 calcium carbonate [Calcium 500] 500 mg calcium (1,250 mg) Tablet 500 mg PO QAM RF: 0 cholecalciferol (vitamin D3) [Vitamin D3] 1,000 unit Capsule 1,000 unit PO QAM RF: 0 Stand-Alone Forms: Media Chaperone, Opioid Pain Management Krames/Other Patient Handouts: Prediabetes, Diabetes Meal Planning, Closure Wound Vacuum Assisted Discharge Orders: Discharge Order (Routine); Ordered 11/06/18 Ordered By: Clark Gutierrez Skilled Items Patient informed of condition?: Yes DNR: No Discharge Level of Care: Acute rehab Communicable Disease: No Discharge Prognosis: Stable Admission Data Admit Date/Time: 11/04/18 12:55 Attending Provider: Scott Singh Admit Provider: Scott Singh Primary Care Provider: Tee Hernandez Service: Surgical Services Other DC Date/Time DO NOT enter until pt leaves facility: 11/06/18 18:11
== END 2018-11-06 18:11 | DRG 462 ==
LOC: ASU 07:14 → 3E 12:55
DX: M17.0 Bilateral primary osteoarthritis of knee; Z79.899 Other long term (current) drug therapy